=== PATIENT | female | born 1955 | race Hispanic/Latino ===

== ENCOUNTER 2018-02-04 06:54 | Day surgery (SDC) | payer BC, OTHER ==
[~2018-02-04] VITALS: Ht 149.9 cm; Wt 58.1 kg
[~2018-02-04 06:54] MED LIST: ASPI-1197 PO; CEFD300C3 PO; METO25 PO; SIMV20TA6 PO; SODIUM CHLORIDE 0.9% 1000ML 1,000 ML IV ONE; TRAM-355 PO
[2018-02-04 07:24] VITALS: BP 171/84
[2018-02-04] MEDS ORDERED: PROPOFOL 10 MG/ML 20ML VIAL IV ONE (08:34)
[2018-02-04 08:51] VITALS: BP 93/40
== END 2018-02-04 09:30 ==
LOC: DAH 06:54
PROVIDERS: ATTEND Internal Medicine Gastroenterology
DX: Z12.11 Encounter for screening for malignant neoplasm of colon (principal); I10 Essential (primary) hypertension; I25.10 Atherosclerotic heart disease of native coronary artery without angina pectoris; Z98.890 Other specified postprocedural states; Z79.899 Other long term (current) drug therapy
CPT/HCPCS: 45378; 93005; A4606; J2704; J7030